=== PATIENT | male | born 1990 | race Caucasian/White ===

== ENCOUNTER 2017-12-25 03:29 | Emergency (ER) | payer OTHER ==
[~2017-12-25] VITALS: Ht 180.3 cm; Wt 90.7 kg
[2017-12-25 03:31] VITALS: BP 154/78
[2017-12-25] MEDS ORDERED: AMLO5TAB PO (03:39)
--- NOTE | 2017-12-25 03:41 | NUR ---
AMBULATED TO ER BED 2
--- NOTE | 2017-12-25 03:41 | NUR ---
PT AMBULATED TO BED 2
--- NOTE | 2017-12-25 03:57 | NUR ---
PT C/O PAIN TO CHEST 03/25, W/ NAUSEA. PT AA&OX4, RR EVEN AND UNLABORED, PT SEEMS TO BE IN NO ACUTE DISTRESS AT THIS TIME. PT STATES HE WAS GETTING READY FOR BED WHEN PAIN BEGAN, STATES HE FEELS LIKE THERE IS A "BUBBLE BETWEEN HIS RIBS AND LUNGS", DULL PAIN. PT DENIES SOB. PT STATES HE HAS HAD PAIN LIKE THIS BEFORE AND WAS DIAGNOSED W/ PANIC ATTACK, PT STATES SINCE HE HAD A ACCIDENT 4 YEARS AGO HE HAS ANXIETY "ON AND OFF". PMH HTN, CHRONIC KNEE PAIN. NKA
--- NOTE | 2017-12-25 04:25 | NUR ---
DR. KEYS AT BEDSIDE, EVALUATING PT.
[2017-12-25] MEDS ORDERED: LORazepam 1 MG TAB PO ONE (04:35)
[2017-12-25 05:49] VITALS: BP 118/58
== END 2017-12-25 05:50 | disposition home or self-care (01) ==
LOC: MED 03:29
DX: M94.0 Chondrocostal junction syndrome [Tietze] (principal); I10 Essential (primary) hypertension; Z79.899 Other long term (current) drug therapy
CPT/HCPCS: 71045; 99283; Q0092